=== PATIENT | male | born 1970 | race Caucasian/White ===

== ENCOUNTER 2018-07-20 15:45 | Outpatient (CLI) | payer BC ==
--- NOTE | 2018-07-20 17:24 | MRI ---
MRI BRAIN WITHOUT CONTRAST: INDICATIONS: History of unsteady gait, worsening over the last year. COMPARISON: None. TECHNIQUE: Multiplanar, multisequence MR images were obtained of the brain without IV contrast. FINDINGS: There is prominent hydrocephalus of the lateral ventricles with transependymal flow of CSF. There is a 1.1 cm spherical mass seen at the confluence of the foramen of Monro, near the superior and anteri or aspect of the third ventricle. This lesion is T1 hyperintense and heterogeneous on T2-weighted im ages. No additional focal intracranial mass is grossly evident. No definite restricted diffusion is evident to suggest acute infarction. No intracranial hemorrhage is grossly evident. There is a mil d amount of mucosal thickening of the ethmoid air cells and maxillary sinuses. IMPRESSION: T1 hyperintense, spherical mass seen near the foramen of Monro, causing severe hydrocephalus of the l ateral ventricles bilaterally. 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 Other diffe rential considerations include a partially thrombosed aneurysm or possibly an additional neoplasm, cleary ch as a craniopharyngioma or subependymoma, which are felt to be less likely. Would recommend follow -up MRI of the brain with and without contrast for additional characterization. A neurosurgical cons ultation is also recommended. CODE T POS: [facility]
== END 2018-07-20 15:46 | disposition home or self-care (01) ==
LOC: BICMRI 15:45
PROVIDERS: ATTEND Family Medicine
DX: R26.81 Unsteadiness on feet (principal); G93.9 Disorder of brain, unspecified
CPT/HCPCS: 70551

== ENCOUNTER 2018-08-04 05:51 | Inpatient (IN) | payer BC ==
[2018-08-03 13:02] VITALS: BMI 29.2
--- NOTE | 2018-08-03 20:33 | HP ---
HISTORY OF PRESENT ILLNESS: Mr. Boland is referred to us by Dr. Enciso, for possible endoscopic removal of a colloid cyst. Mr. Boland is a 48-year-old gentleman, who has noticed a 2 or 3-year decline in his gait, now with a difficult time lifting his feet off the floor. He and his parents do not notice change in cognition or lateralizing motor loss. There is no history of syncope. No loss of vision with cough or sneeze. He is here after MR imaging showing obstructive HCP from a cyst at the foramen of Monro. Dr. Enciso sent him for endoscopic procedure. PAST MEDICAL HISTORY: Anxiety, sciatica, chronic obstructive pulmonary disease, tobacco use, hypertriglyceridemia severe, and unsteady gait. REVIEW OF SYSTEMS: A 10-point review of systems has been completed and is negative other than stated in the above HPI. PAST SURGICAL HISTORY: Denies past surgical history. FAMILY HISTORY: Noncontributory. SOCIAL HISTORY: The patient is a smoker, smokes approximately a pack a day for the past 30 years. States that he drinks alcohol and does not use any other illicit medications. PHYSICAL EXAMINATION: CONSTITUTION: Alert, oriented, afebrile, and normotensive. Does not appear to be in any visible distress. HEENT: Normocephalic and atraumatic. Pupils are equal, round, and react to light. Extraocular movements are intact. Hearing is intact. Moist mucous membranes. RESPIRATIONS: Normal work of breathing on room air. CARDIO: Regular rate and rhythm. NEUROLOGIC: Cranial nerves intact. Did not measure size of blind spot. Cerebellar exam, there is no truncal ataxia. Gait and station, magnetic apraxia of gait severe. Motor exam, no drift. Sensory exam, no neglect. IMAGING: MRI cyst lesion in foramen of Monro, proteinaceous fluid like colloid cyst. 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 Dr. Calhoun has offered surgery. We have discussed endoscopic resection. If that fails, we will do an open transcortical or open interhemispheric surgery, [employer] shunting possible. INFORMED CONSENT: We have discussed the indications, risks, benefits, alternatives, and expected results of surgery. The risks discussed included, but are not limited to, infection, bleeding, CSF leak, brain damage, blindness, memory loss, pituitary dysfunction, significant loss of neurological function, seizure, stroke, dependence of normal care, . Long-term complications discussed include, but are not limited to, recurrence and the need for further surgery. The patient states that he understands the risks and is willing to proceed. Job ID: [id number]
[2018-08-04] MEDS ORDERED: Lidocaine 0.5%/Epinephrine 1:200,000 50 ml Vial ONE (06:18)
[2018-08-04] MEDS ORDERED: Sodium Chloride 0.9% 20 ML ONE (06:18)
[2018-08-04] MEDS ORDERED: Thrombin 5000 UNITS/5 ML VIAL ONE (06:18)
[2018-08-04] MEDS ORDERED: CEFAZOLIN 2 GM/50 ML BAG ONE ×2 (06:28→13:23)
[2018-08-04 06:40] LABS: #Basophils 0.1 thou/uL (0.0-0.2); #Eosinphils 0.3 thou/uL (0.0-0.7); #Lymphocytes 3.5 thou/uL (1.20-3.40); #Monocytes 0.8 thou/uL (0.11-0.59); #Neutrophils 4.9 thou/uL (1.40-6.50); %Basophils 1.4 % (0.0-1.0); %Eosinophils 3.5 % (0.0-10.0); %Lymphocytes 36.4 % (21.0-51.0); %Neutrophils 50.8 % (42.0-75.0); Hemoglobin 17.1 g/dL (14.0-18.0); Mean Corpuscular HGB CONC 32.8 g/dL (32.0-36.0); Mean Corpuscular Hemoglobin 33.3 pg (27.0-31.0); Mean Platelet Volume 8.1 fL (7.4-10.4); Platelet Count 208 thou/uL (130-400); RBC Distribution Width 11.7 % (11.5-14.5); Red Blood Cell (RBC) Count 5.13 mill/uL (4.70-6.10); White Blood Cell (WBC) Count 9.6 thou/uL (4.8-10.8)
[2018-08-04] MEDS ORDERED: Bacitracin Zinc Ointment 30 gm TUBE ONE (06:41)
[2018-08-04 06:43] LABS: INR-International Normal Ratio 0.9; PTT 24.5 SEC (22.9-36.1); Prothrombin Time 12.5 SEC (12.0-14.7)
[2018-08-04] MEDS ORDERED: Albuterol Sulfate 1.25 MG/3 ML NEB ONE (06:52)
[2018-08-04] MEDS ORDERED: Midazolam HCl 2 mg/2 ml Vial ONE (06:52)
[2018-08-04] MEDS ORDERED: Famotidine/PF 20 mg/2ml Vial ONE (06:56)
[2018-08-04] MEDS ORDERED: Metoclopramide HCl 10 MG/2 ML VIAL ONE ×2 (06:56→16:22)
[2018-08-04] MEDS ORDERED: levETIRAcetam 500 MG/100 ML PREMIX BAG ONE (07:13)
[2018-08-04] MEDS ORDERED: Albuterol Sulfate HFA (OR ONLY) ONE (07:13)
[2018-08-04] MEDS ORDERED: levETIRAcetam 1000 MG/100 ML PREMIX BAG ONE (07:13)
[2018-08-04] MEDS ORDERED: Albumin 5% 0 ML ONE (07:13)
[2018-08-04] MEDS ORDERED: Fentanyl 100 MCG/2 ML VIAL ONE ×2 (07:47→17:41)
[2018-08-04] MEDS ORDERED: HYDROcodone/Acetaminophen 7.5/325 mg Tablet PO PRN ×2 (10:42)
[2018-08-04] MEDS ORDERED: diphenhydrAMINE 50 MG/ML VIAL IVP PRN (10:45)
[2018-08-04] MEDS ORDERED: Mag-Al 1200 mg/1200 mg/30 ML UDCUP PO PRN (10:45)
[2018-08-04] MEDS ORDERED: Morphine 4 MG/ML VIAL SLOW IVP PRN (10:45)
[2018-08-04] MEDS ORDERED: Labetalol HCl 100 MG/20 ML VIAL SLOW IVP PRN (10:45)
[2018-08-04] MEDS ORDERED: Cepastat Lozenges 1 LOZ PO PRN (10:45)
[2018-08-04] MEDS ORDERED: Promethazine 25 MG TAB PO PRN (10:45)
[2018-08-04] MEDS ORDERED: hydrALAZINE 20 MG/ML VIAL SLOW IVP PRN (10:45)
[2018-08-04] MEDS ORDERED: Promethazine HCl 25 MG/ML VIAL IM PRN ×2 (10:45→11:11)
[2018-08-04] MEDS ORDERED: CEFAZOLIN/Water 2 GM/20 ML SYRINGE SLOW IVP SCH (10:45)
[2018-08-04] MEDS ORDERED: diphenhydrAMINE 50 MG CAP PO PRN (10:45)
[2018-08-04] MEDS ORDERED: Ondansetron PF 4 MG/2 ML Vial IVP PRN (10:45)
[2018-08-04] MEDS ORDERED: Morphine 2 MG/ML SYRINGE SLOW IVP PRN (10:45)
[2018-08-04] MEDS ORDERED: Docusate 100 MG CAP PO PRN (10:45)
[2018-08-04] MEDS ORDERED: Morphine Sulfate 2 MG/ML SYRINGE SLOW IVP PRN (11:11)
[2018-08-04] MEDS ORDERED: HYDROmorphone 2 MG/ML VIAL SLOW IVP PRN (11:11)
[2018-08-04] MEDS ORDERED: Promethazine HCl 25 MG/ML VIAL SLOW IVP PRN (11:11)
[2018-08-04] MEDS ORDERED: Ondansetron HCl/PF 4 MG/2 ML Vial IVP PRN (11:11)
[2018-08-04] MEDS ORDERED: PACU-Morphine 4MG/ML VIAL SLOW IVP PRN (11:11)
--- NOTE | 2018-08-04 11:51 | OP ---
DATE OF PROCEDURE: 08/04/2018 DRAG CAR RACER: Vannesa Seymour PA-C. PREOPERATIVE INDICATION: Prevent neurological deterioration. 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 OPERATIVE PROCEDURE: Neuroendoscopic resection of colloid cyst, third ventriculostomy with endoscope, placement of external ventricular drain. PREOPERATIVE MEDICATIONS: Ancef 2 g IV. DRAIN NUMBER: 1. DRAIN TYPE: External ventricular. DESCRIPTION OF PROCEDURE: The patient was brought to the operating room. General endotracheal anesthesia was induced. The head was immobilized with Herman pin and headholder. Hair was removed from the scalp with electric clippers and we marked out the coronal suture and the sagittal suture. In the midpupillary line, we planned a curvilinear incision anterior to the coronal suture as well as an exit point for the EVD. Under our planned incisions, we infused local anesthetic. The scalp was sterilely prepped and draped. We opened a right-sided curvilinear frontal incision with a 10 blade knife and controlled bleeding with bipolar cautery. We folded our scalp flap backwards and placed a self-retaining retractor. A jaydon hole was placed anterior to the coronal suture in the midpupillary line. We waxed the edges of the bone. We used bipolar cautery to coagulate the dura and opened the dura in a cruciate fashion. We coagulated the adam gently and opened the adam with an 11 blade knife. We introduced the plastic sheaths into the ventricular system sized for the smaller of two endoscopes. At about 4 cm, we entered the ventricular system. We advanced to 5 cm and stapled the sheath to the drapes. We brought our smaller endoscope into the field, advanced through the sheath into the ventricular system and could easily visualize the foramen of Monro of the anterior septal vein, thalamostriate veins, and the choroid plexus. There was a large cyst in the foramen of Monro stretching the tenia fornicis and the tenia thalami at the level of the foramen of Monro. The cyst protruded anteriorly under the thalamostriate and was easily visualized through the foramen of Monro as well. We then used a bipolar probe and gently coagulated the anterior surface of the cyst and removed a small portion of the wall. The cyst contents were semisolid and needed a larger bore endoscope for removal. I removed the small endoscope and the small sheath and introduced a larger sheath through the same trajectory into the ventricular system. Through this larger sheath, we then introduced a larger endoscope over the working channel sized appropriately for the amount of solid cyst contents. We used an articulated arm to mobilize the endoscope and irrigated through the scope. While the irrigation going, we used multiple instruments to remove both cyst wall and cyst contents. We maneuvered through the foramen of Monro and all of our cystectomy was done there. The cyst rotated nicely into the foramen, in fact so much so that we could see the back wall of the cyst in the left lateral portion of the cyst. We kept the removing cyst wall and cyst contents until all the proteinaceous material was removed. We then brought the smaller endoscope back into the field. We advanced a smaller endoscope through the foramen of Monro. We could visualize the mammillary bodies of suprachiasmatic recess in the floor of the third ventricle. We made a small third ventriculostomy to help with CSF circulation should any of the cyst or proteinaceous material clogged aqueduct. We irrigated copiously with irrigation through our scope. We removed the scope and placed the external ventricular drain catheter through the sheath and into the ventricular system. The sheath was removed from either side and the catheter kept in place. We tunneled posteriorly through a separate stab incision and connected our EVD catheter to a Quinn drainage system. We irrigated with bacitracin irrigation. We closed the wound in anatomical layers and we applied sterile dressings. The EVD catheter was tacked down to the scalp. The drainage system was left open for 1 hour at the height of zero to allow blood and proteinaceous contents to be removed through the EVD. The patient was removed from the Orange pin and headholder, and transferred to the transport cart and taken to the recovery room. Job ID: [id number]
[2018-08-04] MEDS ORDERED: Esmolol 100 MG/10 ML VIAL ONE (16:22)
[2018-08-04] MEDS ORDERED: Dexamethasone 20 MG/5 ML VIAL ONE (16:22)
[2018-08-04] MEDS ORDERED: PROVENTIL INHALER 6.7 G (200 INHALATIONS) ONE (16:22)
[2018-08-04] MEDS ORDERED: Lidocaine 1% PF 5 ML VIAL ONE (16:22)
[2018-08-04] MEDS ORDERED: PHENYLEPHRINE-NS 100 MCG/ML 10 ML SYRINGE ONE (16:22)
[2018-08-04] MEDS ORDERED: Ondansetron PF 4 MG/2 ML Vial ONE (16:22)
[2018-08-04] MEDS ORDERED: PROPOFOL 200 MG/20 ML VIAL ONE (16:22)
[2018-08-04] MEDS ORDERED: Rocuronium Bromide 10 MG/ML (10ML VIAL) ONE (16:22)
[2018-08-04] MEDS ORDERED: Fenofibrate Nanocrystallized 145 MG TAB PO SCH (21:00)
[2018-08-04] MEDS: CEFAZOLIN 2 GM/50 ML-DEXTROSE 2 GM in Premix Bag 1 BAG IVPB SCH ×2 (21:08→22:56)
[2018-08-04] MEDS: Sodium Chloride 0.9% 1,000 ML IV SCH (21:08)
[2018-08-04] MEDS: Famotidine 20 MG TAB PO SCH (21:15)
[2018-08-05] MEDS: Sodium Chloride 0.9% 1,000 ML IV SCH ×2 (01:13→14:45)
[2018-08-05] MEDS: Acetaminophen 325 MG TAB PO PRN ×3 (01:15→11:18)
[2018-08-05] MEDS: CEFAZOLIN 2 GM/50 ML-DEXTROSE 2 GM in Premix Bag 1 BAG IVPB SCH (06:39)
[2018-08-05] MEDS ORDERED: traMADol HCl 50 MG TAB PO PRN ×2 (07:47→07:48)
--- NOTE | 2018-08-05 08:40 | PRG ---
DATE OF SERVICE: 08/05/2018 SUBJECTIVE: I saw Thierno Boland in the ICU room this morning. The EVD is in place and working well. The pressures have been low overnight and the drain is not needed to be opened since the 1 hour in the PACU. Mr. Boland has no complaints and wants to go home. OBJECTIVE: There are no fevers recorded on our electronic chart. Blood pressures have been in the normal range. His neurological examination is at baseline. ASSESSMENT AND PLAN: I went over results and findings of the operation with Mr. Boland. I went over ongoing wound care. I asked him to keep his to pay (hair prosthesis) off his incision at least until we see him in followup in 2 weeks. He can wear a hat, but I do not want anything closely approximated to the incision, lest it stay warm moist and get infected. He expressed his understanding. I went over home going activity restrictions, wound care, and followup arrangements. He verbalized his understanding. We will take the drain out and discharge him home today. Job ID: [id number]
[2018-08-05] MEDS ORDERED: Ubidecarenone 50 MG CAP PO SCH (09:00)
[2018-08-05] MEDS ORDERED: Multivit, Therapeutic 1 TAB PO SCH (09:00)
[2018-08-05] MEDS ORDERED: Ascorbic Acid 500 mg Chewable Tablet PO SCH (09:00)
[2018-08-05] MEDS: Famotidine 20 MG TAB PO SCH (09:10)
--- NOTE | 2018-08-05 09:14 | CT ---
PRELIMINARY REPORT/[facility]/EMERGENTY AFTER-HOURS PROCEDURE CT Head Without Contrast EXAM DATE/TIME: 08/05/2018 3:56 AM CLINICAL HISTORY: 48 years old, male; Device placement; Cerebral fluid drainiage device or shunt; Prior surgery; Surger y date: Post-operative (0-2 days); Patient HX: S/P craniotomy TECHNIQUE: Axial computed tomography images of the head/brain without contrast. COMPARISON: MRI Brain WO Con 07/20/2018 4:05 PM FINDINGS: Tubes, catheters and devices: Right frontal [employer] shunt tube has been placed in the interval, tip is in the right lateral ventricle. Small amount of intraventricular blood now present, presumably secondary to recent shunt tube placement. Follow up will be helpful to exclude progression. Brain: No significant mass effect or midline shift. Small amount of postoperative intracranial gas. T here is relatively symmetrical decreased attenuation in the periventricular white matter, possibly fr om microvascular disease. Another possibility would be transependymal absorption of fluid due to the hydrocephalus. No definite acute infarct by CT. Ventricles: Lateral ventricles remain dilated, similar to the recent MRI exam. The suspected third ventricle colloid cyst seen on recent MRI exam, is likely still present, not as w ell visualized by CT. Bones/joints: No definite acute skull fracture. Sinuses: Included paranasal sinuses are essentially clear. Mastoid air cells: No significant acute finding. Soft tissues: There is subcutaneous gas in the right scalp, related to recent surgery. IMPRESSION: 1. Interval placement of [employer] shunt tube, details above. 2. Lateral ventricles remain dilated, similar to recent exam. 3. Small amount of intraventricular blood now present, see above. 4. No other evidence for intracranial hemorrhage. 5. Postsurgical and other findings discussed above. Thank you for allowing us to participate in the care of your patient. Dictated and Authenticated by: Nelson Candelaria MD 08/05/2018 4:30 AM Central Time ([place] & [place]) FINAL REPORT CT HEAD NONCONTRAST: Date: 08-05-18 Performed on emergency basis at 0357 hours. History: Ventriculostomy drain placement. Comparison: MRI brain 07-20-18 FINDINGS: I agree with the preliminary report by Dr. Londono from [facility]. Right frontal ventriculosto my catheter is now in place. Ventricular dilatation is similar to the recent MRI exam. Small amount o f blood within the dependent portion of the each lateral ventricle. Small amount of pneumocephalus re nichole. Code QA POS: [facility]
[2018-08-05 13:01] VITALS: TEMP 98.4
== END 2018-08-05 14:25 | disposition home or self-care (01) | DRG 27 ==
LOC: SURG A 05:51 → EDSTATUS 15:04 → CCU 20:26
PROVIDERS: ADMIT Neurological Surgery; ATTEND Neurological Surgery
PROC: 00B Central Nervous System and Cranial Nerves, Excision (ICD-10-PCS; principal; 2018-08-04)
PROC: 009 Central Nervous System and Cranial Nerves, Drainage (ICD-10-PCS; 2018-08-04)
DX: Q04.6 Congenital cerebral cysts (principal); G91.1 Obstructive hydrocephalus; F41.9 Anxiety disorder, unspecified; M54.30 Sciatica, unspecified side; J44.9 Chronic obstructive pulmonary disease, unspecified; F17.210 Nicotine dependence, cigarettes, uncomplicated; E78.1 Pure hyperglyceridemia; Z79.82 Long term (current) use of aspirin
CPT/HCPCS: 36415; 70450; 85025; 85610; 85730; 88307; 93005; 93010; J0131; J1100; J1953; J2001; J2250; J2405; J2704; J2765; J3010; J3490; P9045; S0028